=== PATIENT | male | born 1965 | race Caucasian/White ===

== ENCOUNTER 2016-06-16 08:32 | Day surgery (SDC) | payer OTHER ==
[~2016-06-16 08:32] MED LIST: RINGERS SOLUTION,LACTATED 1,000 ML IV PRN; ceFAZolin SODIUM 1 GM VIAL IV PRN
[2016-06-16] MEDS ORDERED: RINGERS SOLUTION,LACTATED 1,000 ML IV ONE (15:50)
--- NOTE | 2016-06-16 18:05 | OR ---
Operative Report - Dictated Report Narrative: Date: 06/16/2016 Physician: Tee Soler M.D. Dog Show Judge: Mars Durbin PA-C Preoperative diagnosis: Right Shoulder rotator cuff tear Postoperative diagnosis: Right Shoulder full-thickness rotator cuff tear with retraction, chondral injury of the posterior inferior glenoid Procedure: Right shoulder arthroscopy with abrasion chondroplasty of the glenoid , mini open rotator cuff repair Anesthesia: General plus regional Complications: None Estimated blood loss: Minimal Specimens: None Retained implants: [employer] 4.5 mm Helicoil anchors 3, [employer] footprint anchors 2 Drains: None Indications: Teresa Is a 51 year-old male who has been followed in my clinic with complaints of shoulder pain consistent with rotator cuff pathology. Physical exam and diagnostic imaging were consistent with his complaints and concern for full- thickness rotator cuff tear. Conservative measures have failed including, but not limited to, passage of time, activity modification, medications, physical therapy/home exercise program, or injections. The risks, benefits, and alternatives were discussed in clinic. The risks being , bleeding, infection, blood clots, nerve, tendon, ligament, blood vessel injury, persistent pain, arthrosis, stiffness, need for prolonged therapy, need for additional procedures, and persistent symptoms. Consent was obtained in the clinic. Procedure: After marking the correct extremity in the preoperative holding area, a timeout was performed in the operating room. IV antibiotics consisting of 2 g of Ancef were administered prior to the procedure. A general followed by regional anesthetic was induced by the nurse behavioral health counselor. This was in the supine position, then the patient was transitioned to a beachchair position with all bony prominences well-padded, head in neutral, the nonoperative arm well supported, and the legs padded with SCDs in place. The operative shoulder was then prepped and draped in a standard sterile fashion. Preoperatively the shoulder had full passive range of motion. After marking out the bony landmarks , saline was infused into the joint through a posterior lateral portal site. A angelito incision was made, and the blunt trocar and cannula was introduced into the shoulder joint. An anterior working portal was placed in the rotator cuff interval using a spinal needle for guidance. Upon initial evaluation, the biceps tendon showed no tearing, no inflammation, and no subluxation out of the bicipital groove. The middle glenohumeral ligament was intact. Subscapularis tendon was intact. The glenoid showed a large loose flap of cartilage approximately 1 x 1 cm of the posterior inferior quadrant with underlying grade 3 chondral change. The humeral head articular surface showed no chondral changes. The anterior labrum was intact. The superior labrum was frayed but intact. The pouch was of normal caliber with no loose bodies. The posterior labrum was intact. The supraspinatus tendon was completely torn and retracted approximately 2 cm. It was noted to have significant delamination and fraying. The infraspinatus tendon was intact. A 4.0 mm shaver was utilized to perform a chondroplasty of the glenoid lesion, removing the loose flap of cartilage. Attention was then turned to the subacromial space. Subacromial bursectomy was performed utilizing the prior portals. The coracoacromial ligament was frayed but intact. The bursal side of the rotator cuff demonstrated complete full-thickness tear of the supraspinatus tendon with significant delamination and a longitudinal split between the posterior third and anterior two thirds of the tendon. The tear was retracted at least 2 cm and approximately a centimeter from the level of the glenoid. There was a cuff of supraspinatus tendon still attached at the footprint and therefore the tear appeared to be intratendinous as opposed to an avulsion off of the footprint. The acromial arch demonstrated normal morphology. Based on the arthroscopic findings, as well as exam and radiographic findings, it was elected to proceed with a mini open rotator cuff repair. A longitudinal incision centered over the previously identified rotator cuff tear was made just off the edge of the acromion. This was approximately 5 centimeters in length. The deltoid fascia was split sharply in line with its fibers, and blunt dissection was carried through the deltoid muscle. Any remaining subacromial bursal tissue was debrided in order to expose the underlying rotator cuff tear. The tuberosity was debrided of its soft tissues producing a bleeding bed for the tendon to be secured to. Three 4.5 mm PEEK helicoil anchors were placed just off the articular surface of the humeral head. A series of horizontal mattress sutures were placed at the prepared edge of the rotator cuff. A [id number]-tpsk suture using #2 FiberWire was also placed to repair the longitudinal split in the tendon itself. The supraspinatus was able to be brought back to the footprint but did have a fair amount of tension. The tendon itself, while delaminated, did have good thickness and there was no suture pullout noted. The free suture limbs were then passed longitudinally into two 4.5 mm PEEK footprint anchors. This was performed using a suture bridge technique. This gave good overall compression to the rotator cuff at the insertion site. The shoulders place a range of motion and had no lift off of the repair site as well as no crepitance or signs of impingement. Full passive range of motion was able to be obtained. Once it was felt that the rotator cuff was adequately repaired, the wounds were thoroughly irrigated. 0 Vicryl was utilized in order to repair the deltoid fascia. 3-0 Vicryl was placed in the subcutaneous tissue. The rotator cuff incision as well as the portal sites were closed with interrupted nylon. Dressings consisting of Xeroform, 4 x 4, ABD, soft roll, and tape were applied. All sponge, needle, blade, and instrument counts were correct prior to closing the wounds. The patient was awoken and transferred to the postanesthesia care unit in stable condition.
[2016-06-16 19:53] VITALS: BP 112/56
== END 2016-06-16 08:33 | disposition home or self-care (01) ==
LOC: AMB 08:32
PROVIDERS: ATTEND Orthopaedic Surgery
PROC: 0RBJ4ZZ Excision of Right Shoulder Joint, Percutaneous Endoscopic Approach (ICD-10-PCS; 2016-06-16)
PROC: 0LQ10ZZ Repair Right Shoulder Tendon, Open Approach (ICD-10-PCS; principal; 2016-06-16 14:20)
DX: M75.101 Unspecified rotator cuff tear or rupture of right shoulder, not specified as traumatic (principal); M24.111 Other articular cartilage disorders, right shoulder; I10 Essential (primary) hypertension; F32.9 Major depressive disorder, single episode, unspecified; Z68.30 Body mass index [BMI] 30.0-30.9, adult